=== PATIENT | male | born 1990 | race Caucasian/White ===

== ENCOUNTER 2018-05-07 15:06 | Outpatient (CLI) | payer OTHER ==
[2018-05-07] MEDS ORDERED: GADOBUTROL 7.5 MMOL/7.5 ML VIAL ONE (15:53)
[2018-05-07] MEDS ORDERED: GADOBUTROL 7.5 MMOL/7.5 ML VIAL IVP ONE (16:37)
--- NOTE | 2018-05-10 09:56 | MRI Report ---
Reason: HEADACHE Procedure Date: 05/07/2018 Accession Number: [id number] / [id number] Procedure: MRI - Neck Soft Tissue W/WO CPT Code: FULL RESULT: EXAM: MRI SOFT TISSUE NECK WITHOUT AND WITH CONTRAST EXAM DATE: 05/07/2018 04:43 PM. CLINICAL HISTORY: Headache. Fullness 2 cm below earlobe. Evaluate for mass. COMPARISON: None. TECHNIQUE: Multiplanar, multisequence T1-weighted and fluid-sensitive MR sequences of the neck soft tissues were performed. Other: None. IV Contrast: 7.5 cc Gadavist. FINDINGS: A marker is seen along the left neck at the level of the superficial lobe of the parotid gland. No suspicious soft tissue mass or focal fluid collection is seen in the soft tissues beneath the marker No mass is present in either orbit. No mass is present in the nasopharynx. Parapharyngeal fat is symmetric. No mass is present in the floor of mouth. There is no mass present in either parotid or submandibular gland. No inflammatory change is seen adjacent to these salivary glands. No bulky or cystic/necrotic lymphadenopathy is seen in the visualized neck. Nonenlarged lymph nodes are seen bilaterally in the neck. These are greatest bilaterally at level 2. No enhancing mass is present in the visualized brain. IMPRESSION: 1. Normal MRI of the neck. [facility]
== END 2018-05-07 15:07 | disposition home or self-care (01) ==
LOC: DI 15:06
PROVIDERS: ATTEND General Practice
DX: R68.84 Jaw pain (principal)
CPT/HCPCS: 70543; A9585